=== PATIENT | male | born 1955 | race Caucasian/White ===

== ENCOUNTER 2018-08-07 07:49 | Day surgery (SDC) | payer OTHER ==
[~2018-08-07] VITALS: Ht 180.3 cm; Wt 81.6 kg
[2018-08-07] VITALS (9 sets, daily range): BP systolic 115–137; BP diastolic 69–83
--- NOTE | 2018-08-07 07:41 | Anethesia Preoperative Eval ---
Anesthesia Pre-op PMH/ROS General Date of Evaluation: Aug 07, 2018 Time of Evaluation: 07:40 Anesthesiologist: delma ASA Score: ASA 3 Mallampati Score Class I : Soft palate, uvula, fauces, pillars visible Class II: Soft palate, uvula, fauces visible Class III: Soft palate, base of uvula visible Class IV: Only hard plate visible Mallampati Classification: Class II Surgeon: gregg Diagnosis: cancer screening Surgical Procedure: colonoscopy Anesthesia History: none Social History: alcohol use Family History: no anesthesia problems Allergies: Coded Allergies: No Known Allergies (Unverified , 08/07/18) Medications: see eMAR Patient NPO?: Yes Past Medical History Cardiovascular: Reports: HTN Pulmonary: Reports: other - bronchitis HEENT: Reports: other - strabismus sx PSxH Narrative: vasectomy, strabismus sx Anesthesia Pre-op Phys. Exam Physician Exam Last Vital Signs Date Time Temp Pulse Resp B/P (MAP) Pulse Ox O2 Delivery O2 Flow Rate FiO2 08/07/18 08:29 Room Air 08/07/18 08:18 97.0 57 20 134/76 97 Constitutional: NAD Neurologic: CN 2-12 intact Cardiovascular: RRR Respiratory: CTA Gastrointestinal: S/NT/ND Airway Exam Mallampati Score: Class II MO: limited Neck: flexible TMD: 2fb ROM: limited Anesthesia Pre-op A/P Risk Assessment & Plan Assessment: asa3 Plan: mac Status Change Before Surgery: No Pre-Antibiotics Drug: Heather Clements MD Aug 07, 2018 07:41
[~2018-08-07 07:49] MED LIST: Atropine Inj 1mg/10ml Syr IV PRN; DiphenhydrAMINE 50mg/ml Inj IVP PRN; LR 1000ml 1,000 ML IVLG SCH; Midazolam 2mg/2ml Inj IVP PRN; fentaNYL 100 mcg/2 mL IV PRN
[2018-08-07] MEDS ORDERED: MULTIVITAMINS1 EAC2 ORAL (08:28)
[2018-08-07] MEDS ORDERED: ZINC50 M2 ORAL (08:28)
[2018-08-07] MEDS ORDERED: VITAMIN D400 INTLU ORAL (08:28)
[2018-08-07] MEDS ORDERED: HYZAAR 50-12.51 EACH ORAL (08:28)
--- NOTE | 2018-08-07 08:32 | Pre-Procedure Note/Attestation ---
Pre-Procedure Note/Attestation Complete Prior to Procedure Planned Procedure: not applicable Procedure Narrative: Colonoscopy, possible biopsy, polypectomy, hemostasis, submucosal injection Indications for Procedure Pre-Operative Diagnosis: Cancer screening Attestation I attest that I discussed the nature of the procedure; its benefits; risks and complications; and alternatives (and the risks and benefits of such alternatives ), prior to the procedure, with the patient (or the patient's legal procurement representative). I attest that, if there was a reasonable possibility of needing a blood transfusion, the patient (or the patient's legal procurement representative) was given the [facility] standardized written summary, pursuant to the Kameron Faustino Blood Safety Act ([place] Health and Safety Code # 1645, as amended). I attest that I re-evaluated the patient just prior to the surgery and that there has been no change in the patient's H&P, except as documented below: Teena Khan MD Aug 07, 2018 08:32
[2018-08-07] MEDS ORDERED: Propofol 200mg/20ml IV ONE (09:45)
[2018-08-07] MEDS ORDERED: LR 1000ml ONE (09:45)
[2018-08-07] MEDS ORDERED: Lidocaine 1% MPF 10mg/ml 5ml ONE (09:45)
--- NOTE | 2018-08-07 10:49 | Endoscopy Procedure Note ---
Endoscopy Procedure Note General Procedures Performed: colonoscopy Operative Findings/Diagnosis: polyps x 4, sigmoid diverticulosis, moderate internal hemorrhoids Specimen: yes Pt Tolerated Procedure Well: Yes Estimated Blood Loss: minimal Anesthesia Anesthesiologist: Heather Bolton MD Anesthesia: moderate sedation Medications Medication Given: see anesthesia record Inserted Devices Implant(s) used?: No Quality Quality of Bowel Preparation: Good Did scope reach the cecum?: Yes Was there any complications?: No GI Core Measures 50 yrs or older w/o bx or poly: No 10yrs. F/U not recommended: Yes If not recommended, why?: Above average risk Teena Khan MD Aug 07, 2018 10:49
--- NOTE | 2018-08-07 12:19 | Immediate Post-Op Evaluation ---
Immediate Post-Op Evalulation Immediate Post-Op Evalulation Procedure: colonoscopy/bx Date of Evaluation: Aug 07, 2018 Time of Evaluation: 11:04 IV Fluids: 400ml lr Blood Products: none Estimated Blood Loss: negligible Blood Pressure Systolic: 126 Blood Pressure Diastolic: 69 Pulse Rate: 66 Respiratory Rate: 18 O2 Sat by Pulse Oximetry: 99 Temperature (Fahrenheit): 97.5 Pain Score (1-10): 0 Nausea: No Vomiting: No Complications none Patient Status: awake, reacts, patent Hydration Status: adequate Drug: Heather Clements MD Aug 07, 2018 12:19
--- NOTE | 2018-08-07 12:21 | 48 Hour Post Anesthesia Eval ---
Post Anesthesia Evaluation Procedure: colonoscopy/bx Date of Evaluation: Aug 07, 2018 Time of Evaluation: 11:06 Blood Pressure Systolic: 115 0: 74 Pulse Rate: 58 Respiratory Rate: 18 Temperature (Fahrenheit): 97.5 O2 Sat by Pulse Oximetry: 99 Nausea: No Vomiting: No Pain Intensity: 0 Hydration Status: adequate Cardiopulmonary Status: stable Mental Status/LOC: patient returned to baseline Post-Anesthesia Complications: none Follow-up care needed: N/A Heather Landin MD Aug 07, 2018 12:21
--- NOTE | 2018-08-07 15:00 | Operative Note - Dictated ---
DATE OF OPERATION: 08/07/2018 PREPROCEDURE DIAGNOSIS: History of previous colon polyps. POSTPROCEDURE DIAGNOSIS: Polyps x4 (a descending colon, transverse colon, ascending colon x2), sigmoid diverticulosis, mild internal hemorrhoids. PROCEDURE: Colonoscopy with cold forceps biopsy. SURGEON: Teena Khan M.D. ANESTHESIOLOGIST: Heather Landin M.D. ANESTHESIA: Propofol sedation. INDICATION FOR PROCEDURE: The patient is a 63-year-old male, whose last colonoscopy was done by me on July 26, 2016, which showed six benign polyps. In light of the patient's findings, it was determined at this time to proceed with a followup colonoscopy. DESCRIPTION OF PROCEDURE: Upon consent of the patient, the patient brought to the procedure room and placed in the left lateral decubitus position. Once adequate sedation was established with propofol drip, digital rectal exam was performed, which showed some mild internal hemorrhoids. An Olympus colonoscope was advanced through the anus into the rectum. The descending colon, splenic flexure, transverse colon, hepatic flexure, and ascending colon were visualized. The cecum was easily reached and the ileocecal valve and appendiceal orifice were identified. The patient's prep was noted to be good. The terminal ileum was intubated and was noted to be normal. The colonoscope was slowly withdrawn. There was noted to be firm benign-appearing polyps in the ascending colon x2, transverse colon, and descending colon. These were all removed with cold forceps biopsy. These were all sent off the field as separate specimens. The postpolypectomy sites were noted to have no active bleeding. There was noted to be scattered sigmoid diverticula, which were not acutely inflamed. Upon reaching the rectum, colonoscope was retroflexed. There was noted to be mild internal hemorrhoids. The scope was straightened, air was evacuated from the rectum, the colonoscope was removed. The patient was awakened from anesthesia and brought to postanesthesia recovery in stable condition. There were no complications. IMPRESSION: Polyps x4, sigmoid diverticulosis, mild internal hemorrhoids. PLAN: Repeat colonoscopy in three years, continue high-fiber diet, and yearly followup. Teena Khan M.D. DR: PDERO LUIS JOB#: [id number] CC: Teena Khan M.D.; Fax#: [phone] Gregory Limon M.D. [facility]ITALArnaldo
== END 2018-08-07 11:50 | disposition home or self-care (01) ==
LOC: GAS 07:49
DX: D12.2 Benign neoplasm of ascending colon (principal); K63.5 Polyp of colon; K57.30 Diverticulosis of large intestine without perforation or abscess without bleeding; K64.8 Other hemorrhoids; Z86.010 Personal history of colon polyps; A60.00 Herpesviral infection of urogenital system, unspecified; L71.9 Rosacea, unspecified; I10 Essential (primary) hypertension; Z98.52 Vasectomy status
CPT/HCPCS: 45380; J2704; 94003; 94150